=== PATIENT | male | born 1980 | race Caucasian/White ===

== ENCOUNTER 2018-08-12 13:41 | Emergency (ER) | payer BC, SELFPAY ==
[2018-08-12 13:45] VITALS: BP 147/97; PULSE 88; RESP 16; TEMP 36.5; O2SAT 97
--- NOTE | 2018-08-12 13:49 | W.ED.GENAD ---
Discharge Plan Disposition Patient Disposition: [facility] Condition: Stable Discharge Details Chief Complaint: Orthopedic Clinical Impression: High-pressure injection injury of finger of left hand Primary Care Provider: Filemon Redding ED Provider: Stephany Mcgowan Home Meds and New Rx's Prescriptions: No Action No Known Home Meds RF: 0 Discharge Instructions Instructions: Puncture Wound (ED), Finger Laceration (ED) Additional Instructions: Go directly to [facility] emergency department for evaluation by the emergency department physician and orthopedic hand surgeon. Discharge Data Discharge Physician: Stephany Mcgowan Medical Decision Making 37-year-old male with left third finger injury sustained while changing a hydraulic hose after he was injected with hydraulic fluid within the left third finger pad. There is a puncture wound noted to his left third finger pad with some edema, erythema and pain noted to the entire left finger. Increased pain with range of motion. Motor/sensory grossly intact. Tetanus up-to-date 2017. Will send for left third finger x-ray and call [facility] orthopedics. Patient will likely need transfer for washout due to concern for deep space infection. 1440 -- d/w [facility] ortho hand - accepts patient for evaluation in the emergency department. Patient is hemodynamically stable and appropriate to go by private vehicle. Discussed with emergency department physician Dr. Mcdonald and he accepts patient. Patient agreeable with plan to go directly there at this time. X-ray resulted after patient discharged and negative. Medical Records Medical records reviewed: Yes I reviewed the patient's medical records. Imaging Data Radiologic Study: Radiologist's impression: XR Left Finger(s), 2 or More Views EXAM DATE/TIME: 08/12/2018 2:05 PM FINDINGS: Bones/joints: No acute fracture. No dislocation. Soft tissues: Normal. IMPRESSION: No acute findings. HPI General Mode of arrival: ambulatory. Date/Time Provider Initiated Documentation: 08/12/18 13:48. Limitations to Documentation: no limitations. Information obtained by: patient. HPI Narrative: Patient is a 37-year-old male who presents with third finger injury sustained changing a hydraulic hose in which the hydraulic fluid was injected in the left third finger pad approximately 90 minutes ago. Patient states since then he has developed persistent pain, swelling and decreased range of motion in the finger. He states his tetanus is up-to-date 2017. Related Data Home Medications Medication Instructions Recorded Confirmed Unknown [No Known Home Meds] 06/28/16 08/12/18 Allergies Allergy/AdvReac Type Severity Reaction Status Date / Time peanuts Allergy Intermediate GI Uncoded 08/12/18 13:51 Review of Systems Review of Systems All systems reviewed & are unremarkable except as noted in HPI and below PFSH Medical History Gout (Chronic) Pancreatitis (Chronic) Surgical History History of tonsillectomy (Chronic) Social History Smoking/Tobacco Use Status: Current-Occasional Tobacco Type: smokeless tobacco Alcohol Intake: former Drug use: Never Do you feel safe at home: Yes Do you feel safe in your relationship?: Yes Exam Const General: cooperative, healthy appearing and no acute distress HENMT Head: normal to inspection Mouth: oral mucosae normal Eyes General: appearance normal, both eyes and all related structures Neck Neck: normal visual inspection Resp Effort & Inspection: normal respiratory effort and able to speak in complete sentences Cardio Rate: regular rate Skin General skin exam: no rashes or lesions noted Neuro General: alert, awake and oriented x3 Motor: muscle tone normal throughout Extrem Hand/finger images: 1. 1 cm puncture wound noted to left third finger pad with surrounding edema, erythema noted on the volar surface of entire left 3rd finger Psych Appearance: grossly normal Affect: normal affect
--- NOTE | 2018-08-12 14:02 | DI.RAD_ITS ---
SYMPTOM/DIAGNOSIS: S/P INJECTION WITH HYDRAULIC FLUID, SWELLING, PAIN LEFT MIDDLE FINGER: Three views. No bone or joint or soft tissue abnormality is identified. IMPRESSION: No acute abnormality.
--- NOTE | 2018-08-12 14:12 | ED.GENADUL_ITS ---
Discharge Plan Disposition Patient Disposition: [facility] Condition: Stable Discharge Details Chief Complaint: Orthopedic Clinical Impression: High-pressure injection injury of finger of left hand Primary Care Provider: Filemon Redding ED Provider: Stephany Mcgowan Home Meds and New Rx's Prescriptions: No Action No Known Home Meds RF: 0 Discharge Instructions Instructions: Puncture Wound (ED), Finger Laceration (ED) Additional Instructions: Go directly to [facility] emergency department for evaluation by the emergency department physician and orthopedic hand surgeon. Discharge Data Discharge Physician: Stephany Mcgowan Medical Decision Making 37-year-old male with left third finger injury sustained while changing a hydraulic hose after he was injected with hydraulic fluid within the left third finger pad. There is a puncture wound noted to his left third finger pad with some edema, erythema and pain noted to the entire left finger. Increased pain with range of motion. Motor/sensory grossly intact. Tetanus up-to-date 2017. Will send for left third finger x-ray and call [facility] orthopedics. Patient will likely need transfer for washout due to concern for deep space infection. 1440 -- d/w [facility] ortho hand - accepts patient for evaluation in the emergency department. Patient is hemodynamically stable and appropriate to go by private vehicle. Discussed with emergency department physician Dr. Mcdonald and he accepts patient. Patient agreeable with plan to go directly there at this time. X-ray resulted after patient discharged and negative. Medical Records Medical records reviewed: Yes I reviewed the patient's medical records. Imaging Data Radiologic Study: Radiologist's impression: XR Left Finger(s), 2 or More Views EXAM DATE/TIME: 08/12/2018 2:05 PM FINDINGS: Bones/joints: No acute fracture. No dislocation. Soft tissues: Normal. IMPRESSION: No acute findings. HPI General Mode of arrival: ambulatory . Date/Time Provider Initiated Documentation: 08/12/18 13:48 . Limitations to Documentation: no limitations . Information obtained by: patient . HPI Narrative: Patient is a 37-year-old male who presents with third finger injury sustained changing a hydraulic hose in which the hydraulic fluid was injected in the left third finger pad approximately 90 minutes ago. Patient states since then he has developed persistent pain, swelling and decreased range of motion in the finger. He states his tetanus is up-to-date 2017. Related Data Home Medications Medication Instructions Recorded Confirmed Unknown [No Known Home Meds] 06/28/16 08/12/18 Allergies Allergy/AdvReac Type Severity Reaction Status Date / Time peanuts Allergy Intermediate GI Uncoded 08/12/18 13:51 Review of Systems Review of Systems All systems reviewed & are unremarkable except as noted in HPI and below PFSH Medical History Gout (Chronic) Pancreatitis (Chronic) Surgical History History of tonsillectomy (Chronic) Social History Smoking/Tobacco Use Status: Current-Occasional Tobacco Type: smokeless tobacco Alcohol Intake: former Drug use: Never Do you feel safe at home: Yes Do you feel safe in your relationship?: Yes Exam Const General: cooperative, healthy appearing and no acute distress HENMT Head: normal to inspection Mouth: oral mucosae normal Eyes General: appearance normal, both eyes and all related structures Neck Neck: normal visual inspection Resp Effort & Inspection: normal respiratory effort and able to speak in complete sentences Cardio Rate: regular rate Skin General skin exam: no rashes or lesions noted Neuro General: alert, awake and oriented x3 Motor: muscle tone normal throughout Extrem Hand/finger images: 1. 1 cm puncture wound noted to left third finger pad with surrounding edema, erythema noted on the volar surface of entire left 3rd finger Psych Appearance: grossly normal Affect: normal affect
--- NOTE | 2018-08-12 15:03 | DI.VRAD_ITS ---
EXAM: XR Left Finger(s), 2 or More Views EXAM DATE/TIME: 08/12/2018 2:05 PM CLINICAL HISTORY: 37 years old, male; Signs and symptoms; Other: S/P injeion with hydrolic fluid, swelling, pain TECHNIQUE: Imaging protocol: XR Left finger minimum 2 views. COMPARISON: CR LEFT LITTLE FINGER 06/28/2016 11:56 AM FINDINGS: Bones/joints: No acute fracture. No dislocation. Soft tissues: Normal. IMPRESSION: No acute findings. Dictated and Authenticated by: Selene Garcia MD. Ordering:YUSEF Hammond MD
[2018-08-12 15:15] VITALS: BP 147/97; PULSE 88; RESP 16; TEMP 36.5; O2SAT 97
== END 2018-08-12 15:05 | disposition short-term general hospital (02) ==
PROVIDERS: Emergency Provider Physician Assistant; PCP Internal Medicine
DX: S61.233A Puncture wound without foreign body of left middle finger without damage to nail, initial encounter (principal); W31.82XA Contact with other commercial machinery, initial encounter
CPT/HCPCS: 99283; 73140; 99282

== ENCOUNTER 2019-06-02 03:44 | Emergency (ER) | payer BC, SELFPAY ==
[2019-06-02 03:47] VITALS: BP 130/98; PULSE 78; RESP 20; TEMP 36.6; O2SAT 99
--- NOTE | 2019-06-02 03:55 | ED.GENADUL_ITS ---
Discharge Plan Disposition Patient Disposition: HOME Condition: Stable Discharge Details Chief Complaint: Nk/Back Pain Clinical Impression: Lower back pain Primary Care Provider: Filemon Redding ED Provider: Jonathan Aceves Home Meds and New Rx's Prescriptions: New prednisone 20 mg tablet 60 mg PO DAILY 5 Days Qty: 15 RF: 0 cyclobenzaprine 10 mg tablet 10 mg PO TID PRN (Reason: muscle spasm) Qty: 20 RF: 0 Discharge Instructions Instructions: Lower Back Exercises (ED) Additional Instructions: you can take 1000mg tylenol and 600mg ibuprofen every 6 hours for pain if you take a cyclobenzaprine do not drink alcohol or drive/operate heavy machinery if pain continues in a week see your primary care provider if you have high fevers, difficulty urinating or weakness return to the emergency department Stand Alone Forms: Physical Therapy Referral Medical Decision Making 38 yo male who denies chronic medical problems comes in with lower back pain. It started after he was cutting wood yesterday, denies falls or trauma, no fevers or ivdu and no prior back surgeries. Localizes the pain to the lower back and has no midilne stepoffs, no rashes, no abdominal tenderness. No urinary retention, weakness or loss of bowel function. He has no saddle anesthesia, normal pulses and motor and sensation of the legs with 2+ lower extremity patella and achilles reflexes. Suspect back strain vs muscle spasm vs disc herniation, no findings on exam or history to suggest cauda equina or sea. Will have him start nsaids, tylenol and muscle relaxers, PT and f/u with pcp and return precautions also given Differential Diagnosis Differential Diagnosis: disc herniation, spasm, strain HPI General Mode of arrival: ambulatory . Date/Time Provider Initiated Documentation: 06/02/19 03:44 . Limitations to Documentation: no limitations . Information obtained by: patient . History of Present Illness 38 year old M presents to the emergency department with the chief complaint of back pain, described as moderate, Patient reports no radiation. and it has been constant. No relieving factors improve symptom(s), No exacerbating factors reported . Patient notes no other symptoms.. Patient did receive the following treatments prior to arrival, none Related Data Home Medications Medication Instructions Recorded Confirmed cyclobenzaprine 10 mg PO TID PRN #20 tab 06/02/19 prednisone 60 mg PO DAILY 5 Days #15 tab 06/02/19 Previous Rx's Medication Instructions Recorded cyclobenzaprine 10 mg PO TID PRN #20 tab 06/02/19 prednisone 60 mg PO DAILY 5 Days #15 tab 06/02/19 Allergies Allergy/AdvReac Type Severity Reaction Status Date / Time peanuts Allergy Intermediate GI Uncoded 06/02/19 03:48 General Stated Complaint: Nk/Back Pain JD: 3 Review of Systems All systems reviewed & are unremarkable except as noted in HPI and below Constitutional Constitutional: Denies chills, Denies fever(s) and Denies weakness Cardiovascular Cardiovascular: Denies chest pain and Denies dyspnea Respiratory Respiratory: Denies cough and Denies dyspnea Gastrointestinal Gastrointestinal: Denies abdominal pain, Denies nausea and Denies vomiting Musculoskeletal Musculoskeletal: Denies joint swelling Neurologic Neurologic: Denies weakness [facility] Social History Smoking/Tobacco Use Status: Current every day Tobacco Type: smokeless tobacco Alcohol Intake: former Drug use: Never Substance use type: does not use Do you feel safe at home: Yes Do you feel safe in your relationship?: Yes Exam Const General: no acute distress Orientation: alert HENMT Head: normal to inspection Ears: external ears normal General nose exam: external nose normal Mouth: moist mucous membranes Eyes General: appearance normal, both eyes and all related structures Neck Neck: normal visual inspection Resp Effort & Inspection: normal respiratory effort and able to speak in complete sentences Cardio Rate: regular rate Back/Spine/Pelvis Back: no CVA tenderness Skin General skin exam: no rashes or lesions noted Neuro General: alert and oriented x3 Extrem General: normal to inspection Psych Mental Status: mental status grossly normal Course Vital Signs Vital signs: Vital Signs Temperature 36.6 C 06/02/19 03:47 Pulse 78 06/02/19 03:47 Respiratory Rate 06/02/19 03:47 Blood Pressure 130/98 H 06/02/19 03:47 Pulse Oximetry 99 06/02/19 03:47 Temperature 36.6 C 06/02/19 03:47 Temperature Source Temporal Artery Scan 06/02/19 03:47 Pulse 78 06/02/19 03:47 Respiratory Rate 06/02/19 03:47 Respiratory Effort Non-Labored 06/02/19 03:49 Blood Pressure 130/98 H 06/02/19 03:47 Blood Pressure Position Sitting 06/02/19 03:47 Pulse Oximetry 99 06/02/19 03:47 Oxygen Delivery Method Room Air 06/02/19 03:47 Oxygen Flow Rate 0 06/02/19 03:47 Pain Level 10 06/02/19 03:49
[2019-06-02] MEDS: predniSONE 20 MG TAB 60 MG PO (04:02)
[2019-06-02] MEDS: Cyclobenzaprine 10 MG TAB PO (04:02)
== END 2019-06-02 04:35 | disposition home or self-care (01) ==
PROVIDERS: Emergency Provider Emergency Medicine; PCP Internal Medicine
DX: M54.5 Low back pain (principal)
CPT/HCPCS: 99283; J7512

== ENCOUNTER 2021-05-19 16:08 | Outpatient (REF) | payer BC, SELFPAY ==
[2021-05-19 14:31] LABS: HCT 47.9 % (40.0-50.0); MCH 28.5 pg (27.0-33.0); MCHC 33.4 % (32.0-36.0); MCV 85.4 fL (80-95); MPV 10.9 fL (8.0-11.0); Platelet Count 240 10^3/uL (130-400); RBC 5.61 10^6/uL (4.36-5.78); RDW 12.2 % (11.8-14.1); RDW-SD 38.1 fL; WBC 6.47 10^3/uL (4.4-10.8)
[2021-05-19 14:41] LABS: ALT 32 U/L (16-63); AST 20 U/L (15-37); Albumin 4.3 g/dL (3.4-5.0); Alkaline Phosphatase 100 U/L (46-116); Anion Gap 7.6 mmol/L (3-11); BUN 19 mg/dL (7-18); Bilirubin, Total 0.5 mg/dL (0.2-1.0); CO2 29.4 mmol/L (21.0-32.0); Calcium 9.1 mg/dL (8.5-10.1); Chloride 103 mmol/L (98-107); Glucose 78 mg/dL (74-106); Potassium 4.5 mmol/L (3.5-5.1); Sodium 140 mmol/L (136-145); Total Protein 7.6 g/dL (6.4-8.2)
== END 2021-05-19 16:09 | disposition home or self-care (01) ==
LOC: NCHCN 16:08
PROVIDERS: PCP Internal Medicine; Visit Provider Family Medicine
DX: I10 Essential (primary) hypertension (principal)
CPT/HCPCS: 80053; 85027

== ENCOUNTER 2023-06-14 14:01 | Outpatient (CLI) | payer BC, SELFPAY ==
--- NOTE | 2023-06-14 13:37 | DI.RAD_ITS ---
Exam(s) XR SHOULDER RT COMPLETE 2+V EXAM: XR SHOULDER RT COMPLETE 2+V CLINICAL HISTORY: RIGHT SHOULDER PAIN. TECHNIQUE: 2D digital imaging was performed. Five views. COMPARISON: No exams were available for comparison FINDINGS: BONES: No acute fracture is present. No bony destructive lesion is seen. JOINTS: No dislocation present. Mild spurring at the AC joint. Moderate narrowing of the glenohumer al joint. Spur at the inferior humeral head. Mild spurring at the inferior glenoid. SOFT TISSUE: Normal. IMPRESSION: Moderate to severe degenerative changes of the glenohumeral joint. DATA REPOSITORY: RADIATION DOSE DELIVERED:
== END 2023-06-14 14:02 | disposition home or self-care (01) ==
LOC: DIORS 14:01
PROVIDERS: PCP Nurse Practitioner Family; Visit Provider Student in an Organized Health Care Education/Training Program
DX: M25.511 Pain in right shoulder (principal)
CPT/HCPCS: 73030

== ENCOUNTER 2023-06-15 08:23 | Outpatient (REF) | payer BC, SELFPAY ==
[2023-06-15 15:02] LABS: Hemoglobin A1C 5.5 % (<5.7)
[2023-06-15 15:18] LABS: ALT 32 U/L (16-63); AST 15 U/L (15-37); Albumin 4.1 g/dL (3.4-5.0); Alkaline Phosphatase 104 U/L (46-116); Anion Gap 7.8 mmol/L (3-11); BUN 18 mg/dL (7-18); Bilirubin, Total 0.5 mg/dL (0.2-1.0); CO2 31.2 mmol/L (21.0-32.0); Calcium 9.9 mg/dL (8.5-10.1); Calculated LDL 143 mg/dL (<100); Chloride 105 mmol/L (98-107); Cholesterol 206 mg/dL (<200); Estimated GFR 95.18 (mL/min/1.73m2); Glucose 104 mg/dL (74-106); HDL Cholesterol 50 mg/dL (40-60); Potassium 5.4 mmol/L (3.5-5.1); Sodium 144 mmol/L (136-145); Total Protein 7.6 g/dL (6.4-8.2); Triglyceride 69 mg/dL (<150)
[2023-06-15 16:04] LABS: COMMENT (LAB VIEW ONLY) 216.57 mg/dL; Microalb ug/mg Crea 2.8 ug/mg Cr
== END 2023-06-15 08:24 | disposition home or self-care (01) ==
LOC: NCHCN 08:23
PROVIDERS: PCP Nurse Practitioner Family; Visit Provider Nurse Practitioner Family
DX: I10 Essential (primary) hypertension (principal)
CPT/HCPCS: 80053; 80061; 82043; 82570; 83036

== ENCOUNTER → 2023-06-23 01:45 | Outpatient (CLI) | payer BC, SELFPAY ==
[2023-06-23] MEDS: Normal Saline - Diluent 50 ML VIAL 20 ML IJ (11:33)
[2023-06-23] MEDS: Bupivacaine 0.5% Pres-Free 10 ML VIAL 8 ML IJ (11:34)
[2023-06-23] MEDS: Omnipaque 300 MG/ML 10 ML BTL 5 ML IJ (11:34)
[2023-06-23] MEDS: methylPREDNISolone ACETATE 80 MG/ML VIAL IM (11:35)
--- NOTE | 2023-06-23 11:36 | DI.RAD_ITS ---
Exam(s) RF JOINT INJ. FLUORO GUID RAD EXAM: RF JOINT INJ. FLUORO GUID RAD CLINICAL HISTORY: R SHOULDER PAIN,FLUORO GUIDED INJECITON,GLENOID LABRUM TEAR,OA ,INSTABILITY. The Patient has had persistent right shoulder pain. Noninvasive measures have been tried. To serve as b oth diagnostic and therapeutic, an injection under fluoroscopy was recommended. The risks of the pro cedure were discussed with their Orthopedic provider and the patient elected to proceed. TECHNIQUE: 2D and realtime digital imaging was performed. CONTRAST MATERIAL: Water soluble contrast was utilized. COMPARISON: CR XR SHOULDER RT COMPLETE 2+V from 06/14/2023 FINDINGS: The Patient was greeted in the fluoroscopy room. The correct side was identified and the consent was reviewed with the patient and was signed. The patient was properly positioned on the fluoroscopy ta ble. Degenerative changes are seen at the glenohumeral joint and the acromioclavicular joint. The r ight shoulderwas then prepped with Chloraprep and draped. The right shoulder injection starting poin t was identified by the bony landmarks and fluoroscopy. The skin and soft tissue in the tract of the injection was anesthetized with 1% Lidocaine. A spinal needle was then inserted into the right shou lder joint at the level of the glenohumeral joint under fluoroscopic guidance. A small amount of Omn ipaque solution was injected to confirm intraarticular placement. Once confirmed, the glenohumeral j oint was injected with 5cc of a solution containing 0.5% Bupivaine and 80 mg of Depo-Medrol. A bundy id was placed on the injection site. The patient tolerated the procedure well and [facility]. IMPRESSION: Successful right shoulder injection. RADIATION DOSE DELIVERED: Ka,r=6.13 mGy
== END ==
PROVIDERS: PCP Nurse Practitioner Family; Visit Provider Student in an Organized Health Care Education/Training Program
DX: S43.431A Superior glenoid labrum lesion of right shoulder, initial encounter (principal); M25.311 Other instability, right shoulder; M19.011 Primary osteoarthritis, right shoulder; X58.XXXA Exposure to other specified factors, initial encounter
CPT/HCPCS: 20610; 77002; J0665; J1040

== ENCOUNTER 2023-06-26 18:49 | Outpatient (REF) | payer BC, SELFPAY ==
[2023-06-26 15:25] LABS: Anion Gap 10.1 mmol/L (3-11); BUN 20 mg/dL (7-18); CO2 29.9 mmol/L (21.0-32.0); CREATININE 1.2 mg/dL (0.70-1.30); Calcium 9.6 mg/dL (8.5-10.1); Chloride 104 mmol/L (98-107); Estimated GFR 76.48 (mL/min/1.73m2); Glucose 91 mg/dL (74-106); Potassium 4.8 mmol/L (3.5-5.1); Sodium 144 mmol/L (136-145)
== END 2023-06-26 18:50 | disposition home or self-care (01) ==
LOC: NCHCN 18:49
PROVIDERS: PCP Nurse Practitioner Family; Referring Provider Nurse Practitioner Family; Visit Provider Nurse Practitioner Family
DX: E87.5 Hyperkalemia (principal)
CPT/HCPCS: 80048

== ENCOUNTER 2024-02-17 12:30 | Emergency (ER) | payer BC, SELFPAY ==
--- NOTE | 2024-02-17 12:30 | RT.EKG_ITS ---
APPROVED REPORT Exam: Resting ECG Reason for Exam: Chest Discomfort Patient Location: E HR:62 bpm ECG Measurements Heart Rate 62 AXIS LA 179 P 14 QRSd 94 QRS 7 QT 392 T -17 QTc 399 Conclusion Sinus rhythm...normal P axis, V-rate 60- 99 Nonspecific T abnormalities, inferior leads...T <-0.10mV, II III aVF ST elev, probable normal early repol pattern...ST elevation, age<55 Physician: no stemi, inverted t wave in III, Q wave also present. no prior ekg for comparison
[2024-02-17 12:38] VITALS: BP 150/107; PULSE 95; RESP 15; TEMP 36.3; O2SAT 98
--- NOTE | 2024-02-17 12:45 | DI.RAD_ITS ---
Exam(s) XR CHEST 2V PA LATERAL EXAM: XR CHEST 2V PA LATERAL CLINICAL HISTORY: SOB, Cough. TECHNIQUE: 2D digital imaging was performed. COMPARISON: No exams were available for comparison FINDINGS: 2 views: Heart size is normal. The mediastinum is not widened. Lungs are clear. No infiltrates nor pleural effusions. IMPRESSION: No acute pulmonary findings. DATA REPOSITORY: RADIATION DOSE DELIVERED:
[2024-02-17 13:00] LABS: Abs Immature Grans 0.03 10^3/uL (0.0-0.06); Absolute Basophil Count 0.08 10^3/uL (0.0-0.2); Absolute Eosinophil Count 0.26 10^3/uL (0.0-0.7); Absolute Lymphocyte Count 2.45 10^3/uL (1.2-3.4); Absolute Monocyte Count 0.71 10^3/uL (0.1-0.8); Eosinophils % 3.3 %; HCT 46.3 % (40.0-50.0); HGB 15.5 g/dL (13.5-17.5); Immature Grans % 0.4 %; Lymphocytes % 30.9 %; MCH 28.2 pg (27.0-33.0); MCHC 33.5 % (32.0-36.0); MCV 84 fL (80-95); MPV 10.9 fL (8.0-11.0); Neutrophils % 55.4 %; Platelet Count 171 10^3/uL (130-400); RBC 5.49 10^6/uL (4.36-5.78); RDW 12.1 % (11.8-14.1); WBC 7.93 10^3/uL (4.4-10.8)
--- NOTE | 2024-02-17 13:00 | ED.GENADUL_ITS ---
Discharge Plan Disposition Patient Disposition: Home Condition: Stable Discharge Details Clinical Impression: URI (upper respiratory infection) Primary Care Provider: Shelia Pandya ED Provider: Hiwot De La Cruz Home Meds and New Rx's Prescriptions: No Action metoprolol succinate 50 mg tablet extended release 24 hr 25 mg PO DAILY Patient Comments: TAKE ONE TABLET BY MOUTH EVERY DAY metoprolol tartrate 25 mg tablet 50 mg PO DAILY Patient Comments: TAKE ONE TABLET BY MOUTH EVERY DAY NEEDED Discharge Instructions Instructions: Cough, runny nose, and the common cold, Upper Respiratory Infection ED Additional Instructions: No evidence of COVID flu or RSV, no evidence of pneumonia on the chest x-ray. Please continue to take [id number] cough and cold remedies. You may also try honey. Gargle with warm salt water if needed. Follow up with primary care provider in 3-5 days. Return to ED sooner if any worsening or concerns. Referrals: Shelia Pandya [Primary Care Provider] - 3 days HPI General Mode of arrival: ambulatory . Date/Time Provider Initiated Documentation: 02/17/24 12:44 . Limitations to Documentation: no limitations . Information obtained by: patient, RN notes reviewed and old records reviewed . HPI Narrative: 43-year-old male presents to the ER with a chief complaint of cough, shortness of breath with activity and URI type symptoms for a month. He reports postnasal drip. No other associated symptoms does have a history of gout and pancreatitis. Related Data Home Medications ?Medication ?Instructions ?Recorded ?Confirmed metoprolol succinate 50 mg 25 mg PO DAILY 02/17/24 02/17/24 tablet,extended release 24 hr metoprolol tartrate 25 mg tablet 50 mg PO DAILY 02/17/24 02/17/24 Allergies Allergy/AdvReac Type Severity Reaction Status Date / Time No Known Allergies Allergy Verified 06/14/23 13:12 General Stated Complaint: RespSymp JD: 3 Review of Systems All systems reviewed & are unremarkable except as noted in HPI and below Cardiovascular Cardiovascular: Reports dyspnea and Reports dyspnea on exertion Respiratory Respiratory: Reports as per HPI, Reports chest congestion, Reports cough, Reports dyspnea and Reports dyspnea on exertion Gastrointestinal Gastrointestinal: Denies nausea and Denies vomiting Exam Narrative Exam Narrative: Constitutional: Alert and oriented x3. Appears stated age. Normal body habitus. Head: Normocephalic, no trauma. Eyes: Pupils PERRL, Red reflex noted, EOM's intact. Eyelids symmetrical without lesions, discharge, or swelling. ENT: Bilateral TM's WNL, External ear normal to inspection, no mastoid TTP, swelling, or erythema, Nasal turbinates WNL, no nasal discharge. Normal dentition, Posterior pharynx WNL, no exudate. Chest: RRR, Normal S1, S2, distal pulses intact. Resp: Lungs clear to auscultation bilaterally, no wheezes, rales, or rhonchi. Abdomen: Soft, non-distended, Normoactive bowel sounds all 4 quads. Musculoskeletal: Normal gait, Moves all 4 extremities without difficulty. Skin: No suspicious rashes or lesions. Capillary refill less than 2 sec. Neurologic: Cranial nerves II-XII intact. Alert and oriented x 3. Motor: No deficits noted. Sensory: Intact bilaterally all 4 extremities. Hematologic/Lymphatic: No ecchymosis, no lymphadenopathy. Course Vital Signs Vital signs: Vital Signs Temperature 36.3 C L 02/17/24 12:38 Pulse 95 H 02/17/24 12:38 Respiratory Rate 15 02/17/24 12:38 Blood Pressure 150/107 H 02/17/24 12:38 Pulse Oximetry 98 02/17/24 12:38 Temperature 36.3 C L 02/17/24 12:38 Pulse 95 H 02/17/24 12:38 Respiratory Rate 15 02/17/24 12:38 Blood Pressure 150/107 H 02/17/24 12:38 Blood Pressure Position Sitting 02/17/24 12:38 Pulse Oximetry 98 02/17/24 12:38 Oxygen Delivery Method Room Air 02/17/24 12:38 Oxygen Flow Rate 0 02/17/24 12:38 Lab/Test Results Lab/Test Results: 02/17/24 12:44 Blood Blood Culture - Pending 02/17/24 12:44 Blood Blood Culture - Pending Medical Decision Making 43-year-old male presents to the ER with a chief complaint of cough, shortness of breath with activity and URI type symptoms for a month. He reports postnasal drip. No other associated symptoms does have a history of gout and pancreatitis. Workup ordered including CBC CMP blood cultures x 2, chest x-ray and Fluvid swab. Patient refusing additional blood draw for cultures. CBC shows no leukocytosis, CMP largely within normal limits negative COVID flu RSV. Chest x-ray shows no acute findings. Troponin WNL, this text was generated using tarpipe dictation system, please disregard any oddities of phrase or misspellings. Lab Data Lab results reviewed: Yes I reviewed the patient's lab results. Labs: 02/17/24 12:44 Blood Blood Culture - Pending 02/17/24 12:44 Blood Blood Culture - Pending Laboratory Tests Range/Units 02/17/24 02/17/24 12:52 13:31 WBC (4.4-10.8) 10^3/uL 7.93 RBC (4.36-5.78) 10^6/uL 5.49 Hgb (13.5-17.5) g/dL 15.5 Hct (40.0-50.0) % 46.3 MCV (80-95) fL 84 MCH (27.0-33.0) pg 28.2 MCHC (32.0-36.0) % 33.5 RDW (11.8-14.1) % 12.1 Plt Count (130-400) 10^3/uL 171 MPV (8.0-11.0) fL 10.9 Immature Gran % % 0.4 Neutrophils % % 55.4 Lymphocytes % % 30.9 Monocytes % % 9.0 Eosinophils % % 3.3 Basophils % % 1.0 Nucleated RBC % (0.0-0.3) % 0.0 Absolute Neutrophils (1.2-6.7) 10^3/uL 4.40 Absolute Lymphocytes (1.2-3.4) 10^3/uL 2.45 Absolute Monocytes (0.1-0.8) 10^3/uL 0.71 Absolute Eosinophils (0.0-0.7) 10^3/uL 0.26 Absolute Basophils (0.0-0.2) 10^3/uL 0.08 Sodium (136-145) mmol/L 144 Potassium (3.5-5.1) mmol/L 4.2 Chloride (98-107) mmol/L 107 Carbon Dioxide (21.0-32.0) mmol/L 28.6 Anion Gap (3-11) mmol/L 8.4 BUN (7-18) mg/dL 15 Creatinine (0.70-1.30) mg/dL 1.0 Est GFR (CKD-EPI 2020) (mL/min/1.73m2) 94.59 Glucose (74-106) mg/dL 83 Calcium (8.5-10.1) mg/dL 9.0 Total Bilirubin (0.2-1.0) mg/dL 0.46 AST (15-37) U/L 23 ALT (16-63) U/L 33 Alkaline Phosphatase (46-116) U/L 97 Troponin I (<or=76) ng/L 6 Total Protein (6.4-8.2) g/dL 7.4 Albumin (3.4-5.0) g/dL 3.7 COVID-19 Source Nasopharynx SARS-CoV-2 (PCR) (Negative) Negative Influenza Type A (PCR) (Negative) Negative Influenza Type B (PCR) (Negative) Negative RSV (PCR) (Negative) Negative Quality:SDOH Health Related Social Needs: No Data to Display PFSH All Active Problems URI (upper respiratory infection) (Acute) Glenoid labral tear (Acute) Instability of right shoulder joint (Acute) Osteoarthritis of right glenohumeral joint (Acute) Acute pancreatitis (Acute 07/20/13) Regular alcohol consumption (Chronic) Medical History (Updated 02/17/24 @ 14:22 by Hiwot De La Cruz NP) Gout Pancreatitis Surgical History History of tonsillectomy Social History Smoking/Tobacco Use Status: Current every day Tobacco Type: smokeless tobacco Smoking risk assessment performed?: Yes Alcohol Intake: former Drug use: Never Substance use type: does not use Housing: house Do you feel safe at home: Yes Do you feel safe in your relationship?: Yes
[2024-02-17 13:15] LABS: ALT 33 U/L (16-63); AST 23 U/L (15-37); Albumin 3.7 g/dL (3.4-5.0); Alkaline Phosphatase 97 U/L (46-116); Anion Gap 8.4 mmol/L (3-11); BUN 15 mg/dL (7-18); Bilirubin, Total 0.46 mg/dL (0.2-1.0); CO2 28.6 mmol/L (21.0-32.0); Chloride 107 mmol/L (98-107); Estimated GFR 94.59 (mL/min/1.73m2); Glucose 83 mg/dL (74-106); Potassium 4.2 mmol/L (3.5-5.1); Sodium 144 mmol/L (136-145); Total Protein 7.4 g/dL (6.4-8.2)
[2024-02-17 13:24] VITALS: BP 138/88; PULSE 67; RESP 20; TEMP 36.8; O2SAT 97
[2024-02-17 14:14] LABS: COVID-19 PCR Negative (Negative); Influenza A PCR Negative (Negative); Influenza B PCR Negative (Negative); RSV PCR Negative (Negative)
[2024-02-17 14:17] LABS: Source Nasopharynx
[2024-02-17 14:55] LABS: Troponin I 6 ng/L (<or=76)
[2024-02-17 15:03] VITALS: BP 141/93; PULSE 63; RESP 18; O2SAT 97
== END 2024-02-17 15:04 | disposition home or self-care (01) ==
PROVIDERS: Emergency Provider Registered Nurse Emergency; PCP Nurse Practitioner Family
DX: J06.9 Acute upper respiratory infection, unspecified (principal); F17.290 Nicotine dependence, other tobacco product, uncomplicated
CPT/HCPCS: 80053; 87040; 87637; 93005; 99285; 71046; 84484; 85025; 93010; 99284

== ENCOUNTER 2024-04-19 12:16 | Outpatient (REF) | payer BC, SELFPAY ==
[2024-04-19 14:48] LABS: Uric Acid 6.5 mg/dL (3.5-7.2)
== END 2024-04-19 12:17 | disposition home or self-care (01) ==
LOC: NCHCN 12:16
PROVIDERS: PCP Nurse Practitioner Family; Visit Provider Nurse Practitioner Family
DX: M10.9 Gout, unspecified (principal)
CPT/HCPCS: 84550

== ENCOUNTER 2024-05-30 17:49 | Outpatient (REF) | payer BC, SELFPAY ==
[2024-05-30 20:49] LABS: Uric Acid 7.5 mg/dL (3.5-7.2)
== END 2024-05-30 17:50 | disposition home or self-care (01) ==
LOC: NCHCN 17:49
PROVIDERS: PCP Nurse Practitioner Family; Visit Provider Nurse Practitioner Family
DX: M10.9 Gout, unspecified (principal)
CPT/HCPCS: 84550

== ENCOUNTER 2024-07-01 17:58 | Outpatient (REF) | payer BC, SELFPAY ==
[2024-07-01 21:39] LABS: HCT 47.1 % (40.0-50.0); HGB 15.4 g/dL (13.5-17.5); MCH 28.3 pg (27.0-33.0); MCHC 32.7 % (32.0-36.0); MCV 86 fL (80-95); Platelet Count 220 10^3/uL (130-400); RBC 5.45 10^6/uL (4.36-5.78); RDW 12.5 % (11.8-14.1); RDW-SD 39.2 fL; WBC 9.61 10^3/uL (4.4-10.8)
[2024-07-01 21:46] LABS: ALT 37 U/L (16-63); Albumin 3.6 g/dL (3.4-5.0); Alkaline Phosphatase 129 U/L (46-116); Anion Gap 6.9 mmol/L (3-11); BUN 15 mg/dL (7-18); CO2 29.1 mmol/L (21.0-32.0); Chloride 108 mmol/L (98-107); Estimated GFR 94.59 (mL/min/1.73m2); Glucose 131 mg/dL (74-106); Potassium 4.9 mmol/L (3.5-5.1); Sodium 144 mmol/L (136-145); Total Protein 6.7 g/dL (6.4-8.2)
[2024-07-01 23:06] LABS: AST 29 U/L (15-37)
[2024-07-02 00:47] LABS: Bilirubin, Total 0.19 mg/dL (0.2-1.0)
[2024-07-02 01:01] LABS: Uric Acid 5.5 mg/dL (3.5-7.2)
== END 2024-07-01 17:59 | disposition home or self-care (01) ==
LOC: NCHCN 17:58
PROVIDERS: PCP Nurse Practitioner Family; Visit Provider Nurse Practitioner Family
DX: M10.9 Gout, unspecified (principal)
CPT/HCPCS: 80053; 85027; 84550

== ENCOUNTER 2024-07-23 13:17 | Outpatient (REF) | payer BC, SELFPAY ==
[2024-07-23 14:27] LABS: ALT 44 U/L (16-63); AST 22 U/L (15-37); Albumin 4.3 g/dL (3.4-5.0); Alkaline Phosphatase 115 U/L (46-116); Bilirubin, Direct 0.1 mg/dL (0.0-0.2); Bilirubin, Total 0.5 mg/dL (0.2-1.0); GGT 30 U/L (15-85); Total Protein 7.6 g/dL (6.4-8.2)
[2024-07-23 15:21] LABS: Bilirubin Negative (Negative); Blood Negative (Negative); Clarity Clear (Clear); Glucose Negative (Negative); Ketones Negative (Negative); Leukocyte Esterase Negative (Negative); Nitrite Negative (Negative); Specific Gravity 1.025 (1.005-1.025); Urobilinogen 0.2 mg/dL (Up to 0.2)
[2024-07-23 16:02] LABS: COMMENT (LAB VIEW ONLY) 189.35 mg/dL; Microalb ug/mg Crea 3.6 ug/mg Cr
[2024-07-29 15:43] LABS: 1,25-Dihydroxyvitamin D 41 pg/mL (18-64)
== END 2024-07-23 13:18 | disposition home or self-care (01) ==
LOC: NCHCN 13:17
PROVIDERS: PCP Nurse Practitioner Family; Visit Provider Nurse Practitioner Family
DX: R94.5 Abnormal results of liver function studies (principal); I10 Essential (primary) hypertension
CPT/HCPCS: 80076; 81003; 82043; 82570; 82652; 82977